=== PATIENT | male | born 2000 | race Caucasian/White ===

== ENCOUNTER 2022-07-30 03:40 | Observation (INO) ==
[2022-07-30 04:18] LABS: Bilirubin,Urine Negative (Negative); Blood,Urine Negative (Negative); Clarity,Urine Clear (Clear); Color,Urine Colorless (Yellow); Glucose,Urine (UA) Normal (Normal); Ketones,Urine Negative (Negative); Leukocyte Esterase,Urine Negative (Negative); Nitrite,Urine Negative (Negative); PH,Urine 6.5 pH Units (5.0-8.0); Protein,Urine Negative (Neg-Trace); Specific Gravity,Urine 1.006 (1.010-1.025); Urobilinogen,Urine Normal (Normal)
[2022-07-30 04:21] LABS: Basophils % 0.4 %; Eosinophils % 0.4 %; Hematocrit 43.1 % (37.5-50.1); Hemoglobin 14.3 g/dL (12.9-16.9); Immature Granulocytes % 0.4 % (0-4); Lymphocytes # 2.6 K/mcL (0.6-4.6); Lymphocytes % 33.5 %; Mean Corpuscular HGB Conc 33.2 g/dL (31.6-35.5); Mean Corpuscular Hemoglobin 29.6 pg (28.0-33.3); Mean Corpuscular Volume 89.2 fL (83.0-100.0); Mean Platelet Volume 9.8 fL (9.4-12.4); Monocytes # 0.7 K/mcL (0.0-1.3); Monocytes % 9.6 %; Neutrophils # 4.3 K/mcL (1.6-8.9); Platelet Count 283 K/mcL (140-400); Red Blood Count 4.83 M/mcL (4.19-5.50); Red Cell Distribution Width 12.5 % (11.5-14.5); Segmented Neutrophils % 55.7 %; White Blood Count 7.7 K/mcL (4.3-11.1)
[2022-07-30 04:30] LABS: Amphetamine Screen,Urine Negative ng/mL (Cutoff=1000); Barbiturate Screen,Urine Negative ng/mL (Cutoff=200); Benzodiazepines Screen,Urine Negative ng/mL (Cutoff=200); Cannabinoid Screen,Urine Positive ng/mL (Cutoff = 50); Cocaine Screen,Urine Negative ng/mL (Cutoff= 300); Opiate Screen,Urine Negative ng/mL (Cutoff=300); Phencyclidine Screen,Urine Negative ng/mL (Cutoff=25)
[2022-07-30 04:40] LABS: Acetaminophen < 10 mcg/mL (10-20); BUN/Creatinine Ratio 4 (6-26); Blood Urea Nitrogen 4 mg/dL (6-20); Calcium 9.5 mg/dL (8.6-10.3); Carbon Dioxide 27 mEq/L (23-29); Chloride 105 mEq/L (98-107); Ethanol 183 mg/dL (Less than 10); Glucose 95 mg/dL (70-105); Osmolality,Calculated 291 (280-300); Potassium 3.7 mEq/L (3.5-5.1); Salicylate < 2.5 mg/dL (15.0-30.0); Sodium 142 mEq/L (136-145)
[2022-07-30 14:51] LABS: Influenza A PCR Negative (Negative); Influenza B PCR Negative (Negative); Resp. Syncytial Virus PCR Negative (Negative)
[2022-07-30 15:04] LABS: SARS-CoV-2 by PCR (In House) Positive (Negative)
[2022-07-30] MEDS ORDERED: Ondansetron ODT 4 MG TAB.RAPDIS SL ONE (15:19)
[2022-07-30] MEDS ORDERED: Naloxone 0.4 MG/ML INJ IVP PRN (15:20)
[2022-07-30] MEDS ORDERED: GuaiFENesin/Codeine Oral Soln 5 ML UDC PO PRN (15:51)
[2022-07-30] MEDS ORDERED: Ondansetron ODT 4 MG TAB.RAPDIS SL PRN (15:52)
[2022-07-31] MEDS: Nicotine 2 MG GUM BC PRN (20:28)
[2022-07-31] MEDS: ARIPiprazole 5 MG TABLET PO SCH (20:28)
[2022-08-01] MEDS: PARoxetine 20 MG TABLET PO SCH (08:02)
[2022-08-01] MEDS: Nicotine 2 MG GUM BC PRN ×2 (08:02→20:17)
[2022-08-01] MEDS: ARIPiprazole 5 MG TABLET PO SCH (20:17)
[2022-08-02 02:56] VITALS: PULSE 62
[2022-08-02] MEDS: PARoxetine 20 MG TABLET PO SCH (07:41)
[2022-08-02 07:50] VITALS: BP 125/80; TEMP 97.5; O2SAT 98
== END 2022-08-02 14:44 | disposition home or self-care (01) ==
LOC: EMEROOARM 03:40 → 3BNU 03:40 → SUATTDRO 15:58 → 3BNU 16:33
PROVIDERS: ADMIT Internal Medicine; ATTEND Registered Nurse